=== PATIENT | male | born 1955 | race Caucasian/White ===

== ENCOUNTER 2018-06-26 05:44 | Inpatient (IN) | payer OTHER ==
[2018-06-26] MEDS ORDERED: GABAPENTIN 300 MG CAP PO ONE (05:52)
[2018-06-26] MEDS ORDERED: ceFAZolin 2 GM/DEXTROSE 100 ML IV ONE (05:52)
[2018-06-26] MEDS ORDERED: morphINE PF 0.2 MG in SYRINGE INTRATHECAL 1 SYR IT ONE (05:52)
[2018-06-26] MEDS ORDERED: ACETAMINOPHEN 500 MG TAB PO ONE (05:52)
[2018-06-26] MEDS ORDERED: fentaNYL 50 MCG in SYRINGE INTRATHECAL 1 SYR IT ONE (05:52)
[2018-06-26] MEDS ORDERED: TRANEXAMIC ACID 1,000 MG in NS 100 ML IV ONE (06:00)
[2018-06-26] MEDS ORDERED: LIDOCAINE 1% 2 ML INJ ONE (06:10)
[2018-06-26] MEDS ORDERED: LIDOCAINE 1% 2 ML INJ ID PRN (06:12)
[2018-06-26] MEDS ORDERED: LR 1,000 ML IV ONE (06:12)
[2018-06-26] MEDS ORDERED: BACITRACIN 50,000 UNITS/10 ML SYR IRR ONE ×2 (06:45→06:46)
[2018-06-26] MEDS ORDERED: BUPIVACAINE 0.25% 30 ML SDV ONE (06:45)
[2018-06-26] MEDS ORDERED: THROMBIN (BOVINE) 5,000 UNIT VIAL TP ONE (06:46)
[2018-06-26] MEDS ORDERED: EPINEPHrine 1 MG/ML INJ ONE (06:46)
[2018-06-26] MEDS ORDERED: CHLORHEXIDINE GLUC HIBICLENS 118 ML BTL TP ONE (06:46)
--- NOTE | 2018-06-26 06:48 | PDANEPAE ---
ANE Past Medical History - Cardiovascular History Hx Hypertension: No Hx Arrhythmias: No Hx Chest Pain: No Hx Coronary Artery / Peripheral Vascular Disease: No Hx CHF / Valvular Disease: No Hx Palpitations: No Cardiovascular History Comment: high chol - Pulmonary History Hx COPD: No Hx Asthma/Reactive Airway Disease: No Hx Recent Upper Respiratory Infection: No Hx Oxygen in Use at Home: No Hx Sleep Apnea: No Sleep Apnea Screening Result - Last Documented: Negative Pulmonary History Comment: seasonal allergies in spring- occ has to use inhaler - Neurologic History Hx Cerebrovascular Accident: No Hx Seizures: No Hx Dementia: No - Endocrine History Hx Diabetes: No Hypothyroid: No Hyperthyroid: No Obesity: no - Renal History Hx Renal Disorders: Yes Renal History Comment: hx of kidney stones - Liver History Hx Hepatic Disorders: No - Neurological & Psychiatric Hx Hx Neurological and Psychiatric Disorders: No - Cancer History Hx Cancer: No - Congenital Disorder History Hx Congenital Disorders: No - GI History GERD: no Hx Gastrointestinal Disorders: No Gastrointestinal History Comment: moderate gerd/heartburn while taking meloxicam. took ppi. stopped meloxicam and now no more gerd - Other Health History Other Health History: wears glasses. wears bilateral hearing aides - Chronic Pain History Chronic Pain: Yes (lower back) - Surgical History Prior Surgeries: kidney stone removal x2. appy. oral surgery x2 ANE Review of Systems Review of Systems: - Exercise capacity Exercise capacity: >=4 METS, limited by disability METS (RN): 4 METS ANE Patient History - Allergies Allergies/Adverse Reactions: penicillin V [From Veetids] Allergy (Verified 06/16/18 12:15) 40 years ago he had reaction - Home Medications Home Medications: Meloxicam 06/16/18 [Last Taken 06/16/18] SIMVASTATIN 06/16/18 [Last Taken 06/24/18] Vitamin D2 06/16/18 [Last Taken 06/20/18] - NPO status NPO Since - Liquids (Date): 06/25/18 NPO Since - Liquids (Time): 19:30 NPO Since - Solids (Date): 06/25/18 NPO Since - Solids (Time): 20:00 - Anes Hx Anes Hx: no prior problems - Smoking Hx Smoking Status: Never smoked - Alcohol Use Alcohol Use: Occasionally - Family Anes Hx Family Anes Hx: neg - N/A Family Hx Anesthesia Complications: none ANE Labs/Vital Signs - Vital Signs Blood Pressure: 144/91 Heart Rate: 53 Respiratory Rate: 16 O2 Sat (%): 96 Height: 182.88 cm Weight: 90.718 kg ANE Anesthesia Plan Anesthesia Plan: general endotracheal anesthesia Total IV Anesthesia: No
--- NOTE | 2018-06-26 06:52 | PDHPUP ---
History & Physical Update H&P update statement: This history and physical update is based on an assessment of the patient which was completed after admission or registration (within 24 hours), but prior to the surgery/procedure. H&P update: H&P reviewed & patient examined, no change in patient's condition since H&P completed
[2018-06-26] MEDS ORDERED: MIDAZOLAM 2 MG/2 ML VIAL ONE (07:02)
[2018-06-26] MEDS ORDERED: RANITIDINE 50 MG/2 ML VIAL ONE (07:05)
[2018-06-26] MEDS ORDERED: ONDANSETRON 4 MG/2 ML VIAL ONE (07:06)
[2018-06-26] MEDS ORDERED: REMIFENTANIL HCL 1 MG VIAL ONE ×2 (07:06→09:31)
[2018-06-26] MEDS ORDERED: fentaNYL 100 MCG/2 ML INJ ONE ×2 (07:06→10:23)
[2018-06-26] MEDS ORDERED: ROCURONIUM 50 MG/5 ML VIAL ONE (07:06)
[2018-06-26] MEDS ORDERED: PROPOFOL 200 MG/20 ML VIAL ONE (07:06)
[2018-06-26] MEDS ORDERED: PROPOFOL/EMULSION 500 MG/50 ML BOTTLE IV ONE ×2 (07:06→09:31)
[2018-06-26] MEDS ORDERED: DEXAMETHASONE 4 MG/ML VIAL ONE (07:07)
[2018-06-26] MEDS ORDERED: LIDOCAINE 2% 2 ML INJ ONE ×2 (07:07)
[2018-06-26] MEDS ORDERED: MIDAZOLAM 2 MG/2 ML VIAL IVP ONE (07:17)
[2018-06-26] MEDS ORDERED: PHENYLEPHRINE HCL 100 MCG/ML SYR ONE (07:22)
--- NOTE | 2018-06-26 07:32 | GHP ---
DATE OF ADMISSION: 06/26/2018 CHIEF COMPLAINT: Low back pain. HISTORY OF PRESENT ILLNESS: The patient is a 63-year-old male with an approximately 6-year history o f low back pain and left lateral thigh numbness. He is not having right leg pain, weakness, ataxia, bowel, or bladder problems. His symptoms are worse with activity and have persisted despite an exten sive course of conservative care including core strengthening, care transition coordinator, and physical therap y. He currently rates his pain at a 4/10. PAST MEDICAL HISTORY: 1. GERD. 2. Hyperlipidemia. 3. Osteoarthritis. 4. Asthma. MEDICATIONS: Prior to admission are: Albuterol, Tylenol, omeprazole, simvastatin, meloxicam. ALLERGIES: Are no known drug allergies. FAMILY HISTORY: Patient has no family history of spine problems. SOCIAL HISTORY: Patient is and lives locally. No known smoking, drinking, or drug use. REVIEW OF SYSTEMS: Negative. PHYSICAL EXAM: GENERAL: The patient is awake, alert, and oriented x4. HEENT: Pupils equal, round, reactive to light. Extraocular motions are intact. There is no evidence of facial droop. Tongue a nd uvula are midline. MUSCULOSKELETAL: Spinal accessory muscles are intact. His motor strength is 5/5. Deep tendon reflexes are 1+ out of 4. His sensation is intact to light touch. The patient is lying in bed, in no apparent distress. EXTREMITIES: [place], warm, and dry. DIAGNOSTIC STUDIES: An MRI of his lumbar spine from 04/26/2018, shows preservation of the sagittal a lignment. There is severe degeneration collapse at L5-S1 level with retrolisthesis of L5 on S1. The re is no evidence of severe central canal stenosis, but there is moderate to severe bilateral L5-S1 f oraminal stenosis. X-rays of the lumbar spine 04/26/2018, show preservation of the sagittal alignment. There is severe degeneration collapse of the disk space at L5-S1 with approximately 9 mm of retrolisthesis of L5 on S 1 that reduces to 4 mm in flexion and is 9 mm in the neutral position. IMPRESSION: This is a 63-year-old male with axial low back pain. This is likely related to severe L 5-S1 degenerative joint disease and retrolisthesis. He has ongoing symptoms despite an extensive cou rse of conservative care. PLAN: Al the above issues are discussed in detail with the patient, his , and Dr. Osullivan, who was present. At this point in time, the patient feels that he has exhausted his conservative op tions. He will be taken to the operating room for an L5-S1 transforaminal lumbar interbody fusion. He understands the risks of surgery include, but are not limited to, bleeding, infection, neurologica l injury, cerebrospinal fluid leak, major vascular injury, and risk of ongoing symptoms postoperative ly. He was set up with the appropriate presurgical paperwork. All questions were answered in detail . /[id number]/MODL
[2018-06-26] MEDS ORDERED: ACETAMINOPHEN 500 MG TAB PO PRN (07:45)
[2018-06-26] MEDS ORDERED: NALOXONE HCL 0.4 MG/ML INJ IVP PRN ×2 (07:45→09:54)
[2018-06-26] MEDS ORDERED: HYDROCODONE/APAP 5/325 TAB PO PRN (07:45)
[2018-06-26] MEDS ORDERED: oxyCODONE IR 5 MG TAB PO PRN (07:45)
[2018-06-26] MEDS ORDERED: ePHEDrine SULFATE 25 MG/5 ML SYR ONE (08:01)
[2018-06-26] MEDS ORDERED: ONDANSETRON 4 MG/2 ML VIAL IVP PRN ×2 (08:36→09:54)
[2018-06-26] MEDS ORDERED: LR 500 ML IV PRN (08:36)
[2018-06-26] MEDS ORDERED: PROMETHAZINE HCL 25 MG/ML INJ IVP PRN (08:36)
[2018-06-26] MEDS ORDERED: PHENYLEPHRINE HCL 100 MCG/ML SYR IVP PRN (08:36)
[2018-06-26] MEDS ORDERED: NEOSTIGMINE METHYLSULFATE 5 MG/5 ML SYR ONE (09:46)
[2018-06-26] MEDS ORDERED: GLYCOPYRROLATE 0.2 MG/1 ML VIAL ONE ×2 (09:46)
[2018-06-26] MEDS ORDERED: ONDANSETRON DISINTEGRATING 4 MG TAB PO PRN (09:54)
[2018-06-26] MEDS ORDERED: LACTULOSE 20 GM/30 ML UDCUP PO PRN (09:54)
[2018-06-26] MEDS ORDERED: diphenhydrAMINE 25 MG CAP PO PRN (09:54)
[2018-06-26] MEDS ORDERED: BISACODYL 10 MG SUPP PR PRN (09:54)
[2018-06-26] MEDS ORDERED: morphINE PCA 30 MG/30 ML PCA IV PRN (09:54)
[2018-06-26] MEDS ORDERED: MAGNESIUM HYDROXIDE 30 ML UDCUP PO PRN (09:54)
[2018-06-26] MEDS ORDERED: NS 1,000 ML IV SCH (10:00)
--- NOTE | 2018-06-26 10:00 | SOAPPROG ---
SOAP Progress Note Assessment/Plan: Assessment: 63 yo M sp L5/S1 TLIF Plan: stable to 3N PT/OT CHRISTEN x 1 please call with neuro changes 06/26/18 09:59 Subjective: + back pain, no leg pain, no weakness. Objective: Vital Signs Temp Pulse Resp BP Pulse Ox 36.8 C 53 L 16 144/91 H 96 06/26/18 06:16 06/26/18 08:40 06/26/18 08:40 06/26/18 08:40 06/26/18 08:40 somnolent PERRL, no facial droop 5/5 + light touch ICD10 Worksheet Patient Problems: Problems Problem Status Onset Fusion of spine of lumbar region Acute - ICD10 Problem Qualifiers (1) Fusion of spine of lumbar region
[2018-06-26] MEDS: fentaNYL 100 MCG/2 ML INJ IVP PRN ×2 (10:25→10:29)
[2018-06-26] MEDS ORDERED: HYDROmorphONE/DILAUDID 2 MG/ML INJ ONE (10:33)
[2018-06-26] MEDS: HYDROmorphONE/DILAUDID 2 MG/ML INJ IVP PRN ×3 (10:35→11:00)
[2018-06-26] MEDS ORDERED: DIAZEPAM 5 MG/ML 1 ML SYR ONE (10:38)
[2018-06-26] MEDS: DIAZEPAM 5 MG/ML 1 ML SYR IVP PRN ×2 (10:40→10:49)
--- NOTE | 2018-06-26 10:50 | PDMN ---
Medical Necessity Medical necessity: MCG: S820 lumbar fusion: 3 days: L5/S1 TLIF [facility] INPT only sgy.
--- NOTE | 2018-06-26 11:04 | GOP ---
DATE OF OPERATION: 06/26/2018 SURGEON: Ayaz Osullivan MD NEUROSURGEON: Ayaz Osullivan MD. MACHINE GREASER: YUVAL Olivas. ANESTHESIA: General endotracheal. PREOPERATIVE DIAGNOSIS: Severe L5-S1 disk degeneration and collapse with neural foraminal stenosis a nd intractable back and left lower extremity radiculopathy. Failed conservative care. POSTOPERATIVE DIAGNOSIS: Severe L5-S1 disk degeneration and collapse with neural foraminal stenosis and intractable back and left lower extremity radiculopathy. Failed conservative care. PROCEDURE PERFORMED: Mini open exposure for left-sided L5-S1 far lateral transpedicular decompressio n with L5-S1 posterior nonsegmental (pedicle screw) fixation and posterolateral fusion with local aut ograft and bone morphogenic protein. L5-S1 posterior/transforaminal lumbar interbody fusion with 2 s tructural PEEK interbody spacers, local autograft and bone morphogenic protein. Use of intraoperativ e microscopy, fluoroscopy, and computer volumetric stereotactic navigation with intraoperative neurop hysiologic testing. Injection of intrathecal narcotic, analgesics, and subcutaneous and intramuscula r local anesthesia for postoperative pain control. FINDINGS: ESTIMATED BLOOD LOSS: 25 cc. INDICATIONS: The patient is a 63-year-old male with intractable low back pain and left lower extremi ty radicular symptoms secondary to severe disk degeneration and collapse with neural foraminal encroa chment. He has failed extensive conservative care and presents now for surgical decompression and st abilization through a mini open approach. DESCRIPTION OF PROCEDURE: After informed consent was obtained, the patient was taken to the operatin g room and placed in the prone position on the Dawson table. The lumbosacral area was prepped and d raped in a sterile fashion. After fluoroscopic localization at correct levels, the subcutaneous and intramuscular tissues were infiltrated with local anesthesia. A midline linear incision was then cre ated over the L5-S1 spinous processes. This was carried down to the fascial layer, which was incised using monopolar electrocautery and carried in a subperiosteal plane along the spinous processes and lamina bilaterally. Intraoperative fluoroscopy was again utilized to verify the correct levels. Fol lowing this, the dissection was carried out over the facet joints. A left-sided far lateral transped icular decompression was then performed under high-power microscopy with complete unroofing of the fa cet joint and neural foramina at L5 and S1. Following excellent decompression, the Stealth Neuron[employer] gational System was brought in and using computer volumetric stereotactic navigation, pedicle screws were placed at L5 and S1 bilaterally. Each individual screw was tested neurophysiologically with mon opolar electrostimulation and interpretation of the potentials by the surgeon. The rods were then pl aced and secured after verification of good position using biplanar fluoroscopy, as well. The rods w ere secured under distraction, during which time a complete diskectomy was performed with preparation of endplates and placement of 2 structural PEEK interbody spacers, local autograft and bone morphoge jordan protein for an L5-S1 posterior/transforaminal lumbar interbody fusion. The screw and anibal system were then placed in a slight amount of compression in order to facilitate bony union and to minimize the potential for posterior graft migration. 200 mcg of Duramorph along with 50 mcg of fentanyl were then injected intrathecally. The wound was copiously irrigated with antibiotic irrigation, and the remaining lamina and facet joint on the right were extensively decorticated at L5 and S1, and the res idual local autograft from the facetectomy along with bone morphogenic protein was placed out lateral ly for posterolateral fusion at the L5-S1 level. A drain was then placed, and intramuscular tissues were re-infiltrated with local anesthesia. Then, the wound was closed in a layered fashion using int errupted Vicryl sutures, followed by Steri-Strips on the skin. COMPLICATIONS: None. DISPOSITION: The patient is currently in the process of being repositioned for extubation. /[id number]/MODL
[2018-06-26] MEDS ORDERED: oxyCODONE IR 5 MG TAB ONE (11:18)
--- NOTE | 2018-06-26 11:32 | POSTANESTH ---
Post Anesthetic Evaluation Cardiovascular Status: Normal, Stable Respiratory Status: Normal, Stable Level of Consciousness/Mental Status: Can Participate in Eval Pain Control: Adequate, Prn Tx Ordered Nausea/Vomiting Control: Adequate, Prn Tx Ordered Complications Possibly Related to Anesthesia: None Noted
[2018-06-26] MEDS: oxyCODONE IR 5 MG TAB PO PRN ×2 (13:20→18:36)
[2018-06-26] MEDS: METHOCARBAMOL 750 MG TAB PO PRN ×2 (13:21→18:35)
[2018-06-26] MEDS: ceFAZolin 2 GM/DEXTROSE 100 ML IV SCH ×2 (13:25→21:41)
[2018-06-26] MEDS: SENNOSIDES/DOCUSATE SODIUM TAB PO SCH ×2 (13:37→21:40)
[2018-06-26] MEDS ORDERED: DIAZEPAM 5 MG TAB PO PRN (14:58)
[2018-06-26] MEDS: ACETAMINOPHEN 500 MG TAB PO SCH ×2 (15:43→21:40)
[2018-06-26] MEDS: GABAPENTIN 300 MG CAP PO SCH ×2 (15:43→21:40)
[2018-06-26] MEDS: POLYETHYLENE GLYCOL 3350 17 GM PKT PO SCH ×2 (15:43→21:41)
[2018-06-26] MEDS ORDERED: SENNOSIDES/DOCUSATE SODIUM TAB PO SCH (21:00)
[2018-06-26] MEDS ORDERED: TAMSULOSIN HCL 0.4 MG CAP PO SCH (21:00)
[2018-06-26] MEDS ORDERED: ATORVASTATIN CALCIUM 20 MG TAB PO SCH (21:00)
[2018-06-26] MEDS: FAMOTIDINE 20 MG TAB PO SCH (21:39)
[2018-06-26] MEDS: morphINE SR 15 MG TAB PO SCH (21:41)
[2018-06-27 05:11] LABS: PLATELET COUNT 240 10^3/uL (150-400)
[2018-06-27] MEDS: ACETAMINOPHEN 500 MG TAB PO SCH ×2 (05:40→16:01)
[2018-06-27] MEDS: GABAPENTIN 300 MG CAP PO SCH ×2 (05:40→13:47)
[2018-06-27] MEDS ORDERED: ENOXAPARIN 40 MG/0.4 ML SYR SC SCH (09:00)
--- NOTE | 2018-06-27 09:51 | NEUSURGPN ---
Assessment/Plan: Assessment: 63 yo M sp L5/S1 TLIF POD1 -Optmize pain management -PT/OT -LSO when OOB -JPx1, 220 output overnight will continue today -[place] replaced last night for urinary retention. will give voiding trial today -Post op xrays pending -DVT prophx: TEDs, SCDs, Lovenox okay POX1 -Please notify NS with any change in neuro/motor exam Subjective: Back pain tolerable with medications. Denies any new leg pain, numbness, tingling or weakness Objective: NAD MAEx4 5/5 and equal in BUE and BLE. Incisional dressing c/d/i. CHRISTEN Drain serosanguineous Catheter Insertion Date: 06/26/18 - Physician Discussed Patient with : [facility] Neuro[facility] Physical Exam - Vitals, I&O, Labs I and O 06/26/18 06/27/18 06/28/18 05:59 05:59 05:59 Intake Total 750 Output Total 2720 Balance -1970 Weight 90.718 kg Intake: Oral (ml) 50 IV Intake (ml) 100 IV Infused (ml) 600 Lr 1,000 ml @ KVO IV ONCE 500 ONE Rx#:[id number] ceFAZolin 2 GM/DEXTROSE 100 100 ml @ 200 mls/hr IV Q8HRS [facility] Rx#:[id number] Output: Urine (ml) 2500 Catheter 2400 Toilet 100 CHRISTEN Drain Output (ml) 220 Back Dawson Nieto 220 Other: Intake Quantity Yes Sufficient Number of Voids Catheter 1 Toilet 10 Number of Stools Toilet 0 Post Void Residual Scan Volume (ml) Toilet 800 Vital Signs Temp Pulse Resp BP Pulse Ox 36.6 C 58 L 17 89/61 L 90 L 06/27/18 07:30 06/27/18 07:30 06/27/18 07:30 06/27/18 07:30 06/27/18 07:30 Laboratory Results 06/27/18 04:47 06/27/18 04:47 ICD10 Worksheet Patient Problems: Problems Problem Status Onset Fusion of spine of lumbar region Acute
[2018-06-27] MEDS: FAMOTIDINE 20 MG TAB PO SCH (10:22)
[2018-06-27] MEDS: morphINE SR 15 MG TAB PO SCH (10:22)
[2018-06-27] MEDS: POLYETHYLENE GLYCOL 3350 17 GM PKT PO SCH ×2 (10:22→16:04)
[2018-06-27] MEDS: SENNOSIDES/DOCUSATE SODIUM TAB PO SCH (10:23)
[2018-06-27] MEDS: METHOCARBAMOL 750 MG TAB PO PRN (10:30)
--- NOTE | 2018-06-27 11:52 | ASMTCMCOM ---
CM Note CM Note Notes: Pt had planned surgery for DJD, resides with spouse. OT rec home, PT rec home/outpatient. Anticipate pt will d/c independent. Date Signed: 06/27/2018 11:52 AM Electronically Signed By:MARGUERITE Grace
[2018-06-27] MEDS: oxyCODONE IR 5 MG TAB PO PRN ×4 (12:14→18:14)
[2018-06-27 15:58] VITALS: BP 105/69
[2018-06-27] MEDS ORDERED: morphINE SR 30 MG TAB PO SCH (21:00)
== END 2018-06-27 18:23 | disposition home or self-care (01) | DRG 455 ==
LOC: F3N 05:44 → OBSVTOIN 05:44 → F3N 12:31
PROVIDERS: ADMIT Neurological Surgery; ATTEND Neurological Surgery
DX: M51.37 Other intervertebral disc degeneration, lumbosacral region (principal); M51.17 Intervertebral disc disorders with radiculopathy, lumbosacral region; M48.07 Spinal stenosis, lumbosacral region; E78.00 Pure hypercholesterolemia, unspecified; K21.9 Gastro-esophageal reflux disease without esophagitis; J45.909 Unspecified asthma, uncomplicated
CPT/HCPCS: 97161-GP; 97165-GO; C1713; J0171; J0690; J1100; J1170; J1650; J2250; J2274; J2370; J2405; J2704; J2710; J2780; J3010; J3360